=== PATIENT | male | born 2000 | race Caucasian/White ===

== ENCOUNTER 2023-01-08 21:52 | Emergency (ER) | payer BC ==
[~2023-01-08] VITALS: Ht 175.3 cm; Wt 65.8 kg
[2023-01-08 21:56] VITALS: BP 139/88
[2023-01-08 22:05] VITALS: BP 139/88
--- NOTE | 2023-01-08 22:30 | NUR ---
MCKENNA Chambers examining patient.
[2023-01-08] MEDS ORDERED: HYDROcodone/APAP 5/325 MG 1 TAB TAB PO ONE (22:40)
[2023-01-08] MEDS ORDERED: IBUP-2213 PO (22:50)
[2023-01-08] MEDS ORDERED: LID5T TP (22:50)
[2023-01-08] MEDS ORDERED: GABA100C PO (22:50)
[2023-01-08] MEDS ORDERED: CYCL-711 PO (22:50)
--- NOTE | 2023-01-08 23:05 | NUR ---
Patient discharged with v/s stable. Written and verbal after care instructions given and explained. Patient verbalized understanding. Ambulatory with steady gait. All questions addressed prior to discharge. Advised to follow up with PMD.
== END 2023-01-08 23:05 | disposition home or self-care (01) ==
LOC: MED 21:52
DX: S39.012A Strain of muscle, fascia and tendon of lower back, initial encounter (principal); M54.16 Radiculopathy, lumbar region; X58.XXXA Exposure to other specified factors, initial encounter; Y93.89 Activity, other specified; Y92.89 Other specified places as the place of occurrence of the external cause; Y99.8 Other external cause status
CPT/HCPCS: 99283